=== PATIENT | male | born 1975 | race African-American/Black ===

== ENCOUNTER 2023-03-31 17:13 | Emergency (ER) | payer OTHER ==
[~2023-03-31 17:13] MED LIST: Iopamidol-370 76% 500 ML MDV (1 ML CHARGE) ONE
[2023-03-31] MEDS ORDERED: Ketorolac Tromethamine 30 MG/ML VIAL ONE (17:56)
[2023-03-31] MEDS ORDERED: Albuterol 2.5 MG/0.5 ML NEB ONE (17:56)
[2023-03-31] MEDS ORDERED: methylPREDNISolone Sod Succ/PF 125 MG/2 ML VIAL ONE ×2 (17:56→17:58)
[2023-03-31] MEDS ORDERED: Ipratropium Bromide 2.5 ml Neb ONE (17:57)
[2023-03-31 18:20] LABS: #Basophils 0.1 thou/uL (0.0-0.2); #Eosinphils 0.4 thou/uL (0.0-0.7); #Monocytes 0.3 thou/uL (0.11-0.59); %Basophils 0.5 % (0.0-1.0); %Eosinophils 3.7 % (0.0-10.0); %Lymphocytes 18.6 % (21.0-51.0); %Monocytes 3.4 % (0.0-10.0); %Neutrophils 72.8 % (42.0-75.0); Mean Corpuscular HGB CONC 34.2 g/dL (32.0-36.0); Mean Corpuscular Hemoglobin 32.3 pg (27.0-31.0); Mean Corpuscular Volume 94.5 fl (78.0-98.0); Mean Platelet Volume 9.8 fL (7.4-10.4); Platelet Count 211 10x3/uL (130-400); RBC Distribution Width 12.6 % (11.5-14.5); Red Blood Cell (RBC) Count 4.02 mill/uL (4.70-6.10); White Blood Cell (WBC) Count 9.6 10x3/uL (4.8-10.8)
[2023-03-31 18:46] LABS: ALT (SGPT) 15 U/L (8-55); AST (SGOT) 13 U/L (5-34); Albumin 3.9 g/dL (3.5-5.0); Alkaline Phosphatase 103 U/L (40-110); Anion Gap 13 mmol/L (10-20); BUN (Urea Nitrogen) 13 mg/dL (8.9-20.6); Bilirubin, Total 0.5 mg/dL (0.2-1.2); Calc. Creatinine Clearance 0 mL/min (70-130); Calcium 9.1 mg/dL (7.8-10.44); Carbon Dioxide 23 mmol/L (22-29); Estimated GFR 90; Globulin 2.7 g/dL (2.4-3.5); Glucose 132 mg/dL (70-105); Potassium 3.6 mmol/L (3.5-5.1); Protein, Total 6.6 g/dL (6.0-8.3)
[2023-03-31 19:15] LABS: Chloride 108 mmol/L (98-107); Sodium 140 mmol/L (136-145)
== END 2023-03-31 23:20 | disposition home or self-care (01) ==
LOC: ERS 17:13
DX: J18.9 Pneumonia, unspecified organism (principal); R07.9 Chest pain, unspecified; I25.10 Atherosclerotic heart disease of native coronary artery without angina pectoris; I10 Essential (primary) hypertension; E11.9 Type 2 diabetes mellitus without complications; F17.210 Nicotine dependence, cigarettes, uncomplicated
CPT/HCPCS: 71045; 71275; 80053; 84484; 85025; 93005; 94640; 96374; 96375; J1885; J2930; J7611; Q9967

== ENCOUNTER 2023-05-08 13:56 | Inpatient (IN) | payer OTHER ==
[2023-05-08 14:22] LABS: #Basophils 0.1 thou/uL (0.0-0.2); #Eosinphils 0.2 thou/uL (0.0-0.7); #Monocytes 0.4 thou/uL (0.11-0.59); #Neutrophils 3.7 thou/uL (1.40-6.50); %Basophils 0.9 % (0.0-1.0); %Eosinophils 3.6 % (0.0-10.0); %Lymphocytes 34.8 % (21.0-51.0); %Monocytes 5.2 % (0.0-10.0); %Neutrophils 55.2 % (42.0-75.0); Hemoglobin 14.8 g/dL (14.0-18.0); Mean Corpuscular HGB CONC 35.2 g/dL (32.0-36.0); Mean Corpuscular Volume 90.9 fl (78.0-98.0); Mean Platelet Volume 10.5 fL (7.4-10.4); Platelet Count 235 10x3/uL (130-400); Red Blood Cell (RBC) Count 4.63 mill/uL (4.70-6.10); White Blood Cell (WBC) Count 6.7 10x3/uL (4.8-10.8)
[2023-05-08 14:47] LABS: ALT (SGPT) 18 U/L (8-55); AST (SGOT) 21 U/L (5-34); Albumin 4.2 g/dL (3.5-5.0); Alkaline Phosphatase 207 U/L (40-110); Anion Gap 17 mmol/L (10-20); BUN (Urea Nitrogen) 18 mg/dL (8.9-20.6); Bilirubin, Total 0.5 mg/dL (0.2-1.2); Calc. Creatinine Clearance 0 mL/min (70-130); Calcium 9.5 mg/dL (7.8-10.44); Carbon Dioxide 18 mmol/L (22-29); Chloride 97 mmol/L (98-107); Estimated GFR 55; Globulin 3.5 g/dL (2.4-3.5); Glucose 632 mg/dL (70-105); Lipase 124 U/L (8-78); Potassium 4.4 mmol/L (3.5-5.1); Protein, Total 7.7 g/dL (6.0-8.3); Sodium 128 mmol/L (136-145)
[2023-05-08] MEDS ORDERED: Morphine 4 MG/ML VIAL ONE ×2 (15:45→18:43)
[2023-05-08] MEDS ORDERED: Ondansetron PF 4 MG/2 ML Vial ONE (15:45)
[2023-05-08 18:36] LABS: Bacteria/HPF None Seen HPF (None Seen); Bilirubin Negative (Negative); Blood, Urine Negative (Negative); CAUTI Indications for Culture Alt mental st,lethar; Clarity Clear (Clear); Glucose, Urine (Dipstick) Greater than 1000 mg/dL (Negative); Ketone, Urine 10 mg/dL (Negative); Leukocyte Negative Leu/uL (Negative); Nitrite Negative (Negative); Protein, Urine (Dipstick) Negative (Neg-Trace); RBC/HPF None Seen HPF (0-3); Specific Gravity, Urine 1.029 (1.002-1.036); Squamous Epithelial None Seen HPF (0-3); Urobilinogen Normal mg/dL (Less than 2); WBC/HPF None Seen HPF (0-3); pH, Urine 5.5 (5.0-9.0)
[2023-05-08 18:38] LABS: Urine Culture Reflex No No
[2023-05-08] MEDS ORDERED: Aspirin Chewable 81 MG TAB ONE (19:57)
[2023-05-08] MEDS ORDERED: Acetaminophen 650 MG Suppository PR PRN (20:08)
[2023-05-08] MEDS ORDERED: Ondansetron ODT 4 MG TAB PO PRN (20:08)
[2023-05-08] MEDS ORDERED: Acetaminophen 325 MG TAB PO PRN (20:08)
[2023-05-08] MEDS ORDERED: Ondansetron PF 4 MG/2 ML Vial IVP PRN (20:08)
[2023-05-08] MEDS ORDERED: Glucagon 1 MG/ML KIT IM PRN (20:08)
[2023-05-08] MEDS ORDERED: Dextrose 5% in Water 1,000 ML IV PRN (20:08)
[2023-05-08] MEDS ORDERED: Dextrose 50% Abboject 50 ML SYRINGE SLOW IVP PRN (20:08)
[2023-05-08] MEDS ORDERED: Furosemide 40 MG/4 ML VIAL SLOW IVP SCH (21:00)
[2023-05-08] MEDS: HumaLOG 300 UNITS/3 ML VIAL SC PRN ×2 (21:23→23:08)
[2023-05-08 21:35] LABS: Anion Gap 16 mmol/L (10-20); BUN (Urea Nitrogen) 14 mg/dL (8.9-20.6); Calc. Creatinine Clearance 57 mL/min (70-130); Calcium 9.7 mg/dL (7.8-10.44); Carbon Dioxide 23 mmol/L (22-29); Chloride 96 mmol/L (98-107); Estimated GFR 58; Potassium 4.4 mmol/L (3.5-5.1); Sodium 131 mmol/L (136-145)
[2023-05-08 21:38] LABS: Glucose 538 mg/dL (70-105)
[2023-05-08 21:59] LABS: Troponin I Less than 0.010 ng/mL (< 0.028)
[2023-05-08] MEDS: Sodium Chloride 0.9% 1,000 ML IV SCH (23:30)
[2023-05-09] MEDS: HumaLOG 300 UNITS/3 ML VIAL SC PRN ×4 (01:25→17:30)
[2023-05-09 04:05] LABS: Mean Corpuscular HGB CONC 35.3 g/dL (32.0-36.0); Mean Corpuscular Volume 90.6 fl (78.0-98.0); Mean Platelet Volume 10.4 fL (7.4-10.4); Platelet Count 216 10x3/uL (130-400); RBC Distribution Width 12.1 % (11.5-14.5); Red Blood Cell (RBC) Count 4.06 mill/uL (4.70-6.10)
[2023-05-09 04:16] LABS: Hemoglobin A1c Greater than 14.0 % (4.0-6.0)
[2023-05-09 04:24] LABS: Anion Gap 10 mmol/L (10-20); BUN (Urea Nitrogen) 12 mg/dL (8.9-20.6); Calc. Creatinine Clearance 84 mL/min (70-130); Calcium 8.7 mg/dL (7.8-10.44); Carbon Dioxide 21 mmol/L (22-29); Chloride 104 mmol/L (98-107); Estimated GFR 93; Glucose 232 mg/dL (70-105); Potassium 3.3 mmol/L (3.5-5.1); Sodium 132 mmol/L (136-145)
[2023-05-09 04:52] LABS: Delete Auto Diff?? YES; Manual Diff?? YES
[2023-05-09 06:40] LABS: Band 5 % (5-11); CellaVision Operator ID LAB.JMM; Eosinophils 8 % (0-10); Lymphocytes 46 % (21-51); Monocytes 3 % (0-10); Neutrophil 35 % (42-75); Platelet Adequacy Comment Platelets Normal; RBC Morphology Within Normal Limits; Total Cell Count 100
[2023-05-09] MEDS: Sodium Chloride 0.9% 1,000 ML IV SCH (09:14)
[2023-05-09] MEDS ORDERED: Potassium Chloride 20 MEQ TAB PO SCH (10:00)
[2023-05-09] MEDS ORDERED: traMADol HCl 50 MG TAB PO PRN (10:50)
[2023-05-09] MEDS ORDERED: Furosemide 20 MG/2 ML VIAL SLOW IVP SCH ×2 (11:00→14:00)
[2023-05-09] MEDS ORDERED: Electrolyte Replacement Protocol 1 EACH FS SCH (12:00)
[2023-05-09 12:47] LABS: Magnesium 1.9 mg/dL (1.6-2.6)
[2023-05-09 13:18] VITALS: BMI 21.2
[2023-05-09] MEDS ORDERED: Furosemide 40 MG/4 ML VIAL SLOW IVP SCH (14:00)
[2023-05-09] MEDS ORDERED: Magnesium 2 GM/50 ML(in water) 2 GM in Premix Bag 1 BAG IVPB SCH (14:00)
[2023-05-09 18:07] VITALS: BP 95/65; TEMP 97.9
[2023-05-10] MEDS ORDERED: Atorvastatin Calcium 40 MG TAB PO SCH (07:30)
[2023-05-10] MEDS ORDERED: Clopidogrel Bisulfate 75 MG TAB PO SCH (09:00)
[2023-05-10] MEDS ORDERED: Aspirin 81 mg Enteric Coated Tablet PO SCH (09:00)
== END 2023-05-09 18:52 | disposition home or self-care (01) | DRG 291 ==
LOC: ERS 13:56 → 2NO 18:38
PROVIDERS: ADMIT Family Medicine; ATTEND Internal Medicine
DX: I11.0 Hypertensive heart disease with heart failure (principal); I50.43 Acute on chronic combined systolic (congestive) and diastolic (congestive) heart failure; E87.1 Hypo-osmolality and hyponatremia; N17.9 Acute kidney failure, unspecified; E11.65 Type 2 diabetes mellitus with hyperglycemia; I25.10 Atherosclerotic heart disease of native coronary artery without angina pectoris; F17.210 Nicotine dependence, cigarettes, uncomplicated; F31.9 Bipolar disorder, unspecified; F43.10 Post-traumatic stress disorder, unspecified; E87.6 Hypokalemia; R39.198 Other difficulties with micturition; Z87.01 Personal history of pneumonia (recurrent); Z91.013 Allergy to seafood; Z79.82 Long term (current) use of aspirin; Z95.5 Presence of coronary angioplasty implant and graft; Z79.02 Long term (current) use of antithrombotics/antiplatelets; Z79.899 Other long term (current) drug therapy; Z82.49 Family history of ischemic heart disease and other diseases of the circulatory system; I42.0 Dilated cardiomyopathy
CPT/HCPCS: 36415; 36416; 71045; 71275; 76770; 80048; 80053; 81001; 83036; 83615; 83690; 83735; 83880; 84484; 85025; 93005; 93306; 96361; 96374; 96375; 96376; 97139; J1650; J1815; J1940; J2270; J2405; J3475; J7050; Q9967

== ENCOUNTER 2024-08-13 00:40 | Inpatient (IN) | payer OTHER ==
[2024-08-13 01:56] LABS: #Basophils 0.07 10x3/uL (0.0-0.2); %Basophils 0.8 % (0.0-1.0); %Eosinophils 1.5 % (0.0-10.0); %Lymphocytes 27.9 % (21.0-51.0); %Monocytes 2.6 % (0.0-10.0); Hematocrit 41.3 % (42.0-52.0); Hemoglobin 13.9 g/dL (14.0-18.0); Mean Corpuscular HGB CONC 33.7 g/dL (32.0-36.0); Mean Corpuscular Hemoglobin 33.2 pg (27.0-31.0); Mean Corpuscular Volume 98.6 fL (78.0-98.0); Platelet Count 271 10x3/uL (130-400); RBC Distribution Width 13.2 % (11.5-14.5); Red Blood Cell (RBC) Count 4.19 mill/uL (4.70-6.10)
[2024-08-13] MEDS ORDERED: Ondansetron PF 4 MG/2 ML Vial ONE (02:09)
[2024-08-13] MEDS ORDERED: Nitroglycerin 2% Ointment 1 INCH/1 GM Packet ONE (02:09)
[2024-08-13 02:16] LABS: ALT (SGPT) 34 U/L (8-55); AST (SGOT) 29 U/L (5-34); Albumin 3.6 g/dL (3.5-5.0); Alkaline Phosphatase 143 U/L (40-110); Anion Gap 13 mmol/L (10-20); BUN (Urea Nitrogen) 15 mg/dL (8.9-20.6); Bilirubin, Total 1.2 mg/dL (0.2-1.2); Calc. Creatinine Clearance 0 mL/min (70-130); Calcium 8.9 mg/dL (7.8-10.44); Carbon Dioxide 15 mmol/L (22-29); Chloride 112 mmol/L (98-107); Estimated GFR 104; Glucose 200 mg/dL (70-105); Potassium 4.2 mmol/L (3.5-5.1); Protein, Total 6.6 g/dL (6.0-8.3); Sodium 136 mmol/L (136-145)
[2024-08-13 02:20] LABS: Troponin I 0.023 ng/mL (< 0.028)
[2024-08-13] MEDS ORDERED: fentaNYL 50 mcg/mL 1 mL Vial ONE (02:54)
[2024-08-13] MEDS ORDERED: Furosemide 40 MG (4 mL) VIAL ONE (02:54)
[2024-08-13] MEDS ORDERED: Promethazine HCl 25 MG/ML VIAL ONE (02:56)
[2024-08-13] MEDS ORDERED: Ondansetron ODT 4 MG TAB PO PRN (03:30)
[2024-08-13] MEDS ORDERED: Ondansetron PF 4 MG/2 ML Vial IVP PRN (03:30)
[2024-08-13] MEDS ORDERED: Acetaminophen 325 MG TAB PO PRN (03:30)
[2024-08-13] MEDS ORDERED: Insulin Lispro 100 UNIT/ML 10 ML VIAL SC PRN ×2 (03:46)
[2024-08-13] MEDS ORDERED: Glucagon 1 MG/ML KIT IM PRN (03:46)
[2024-08-13] MEDS ORDERED: Dextrose 5% in Water 1,000 ML IV PRN (03:46)
[2024-08-13] MEDS ORDERED: Dextrose 50% Abboject 50 ML SYRINGE SLOW IVP PRN (03:46)
[2024-08-13 04:22] VITALS: BMI 22.1
[2024-08-13 04:55] LABS: Troponin I 0.028 ng/mL (< 0.028)
[2024-08-13] MEDS ORDERED: Enoxaparin 60 MG (0.6 mL) SYRINGE SC SCH (06:45)
[2024-08-13 07:59] LABS: Anion Gap 12 mmol/L (10-20); BUN (Urea Nitrogen) 15 mg/dL (8.9-20.6); Calc. Creatinine Clearance 79 mL/min (70-130); Calcium 8.7 mg/dL (7.8-10.44); Carbon Dioxide 20 mmol/L (22-29); Chloride 110 mmol/L (98-107); Estimated GFR 85; Glucose 151 mg/dL (70-105); Magnesium 1.7 mg/dL (1.6-2.6); Potassium 3.9 mmol/L (3.5-5.1); Sodium 138 mmol/L (136-145)
[2024-08-13 08:04] LABS: Troponin I 0.022 ng/mL (< 0.028)
[2024-08-13] MEDS ORDERED: Aspirin 81 mg Enteric Coated Tablet PO SCH (09:00)
[2024-08-13] MEDS ORDERED: Enoxaparin 40 MG (0.4 mL) SYRINGE SC SCH (09:00)
[2024-08-13] MEDS ORDERED: Enoxaparin 80 MG (0.8 mL) SYRINGE SC SCH (09:00)
[2024-08-13] MEDS ORDERED: Aspirin 81 mg Enteric Coated Tablet ONE (10:59)
[2024-08-13 12:51] VITALS: BP 116/86; TEMP 97.9
[2024-08-13] MEDS ORDERED: Furosemide 40 MG (4 mL) VIAL SLOW IVP SCH (14:00)
[2024-08-14] MEDS ORDERED: Atorvastatin Calcium 40 MG TAB PO SCH (07:30)
== END 2024-08-13 12:00 | disposition left against medical advice (07) | DRG 291 ==
LOC: ERS 00:40 → ERHOLD 03:00
PROVIDERS: ADMIT Student in an Organized Health Care Education/Training Program; ATTEND Family Medicine
DX: I11.0 Hypertensive heart disease with heart failure (principal); I50.23 Acute on chronic systolic (congestive) heart failure; E11.9 Type 2 diabetes mellitus without complications; I25.110 Atherosclerotic heart disease of native coronary artery with unstable angina pectoris; F17.210 Nicotine dependence, cigarettes, uncomplicated; F31.9 Bipolar disorder, unspecified; F43.10 Post-traumatic stress disorder, unspecified; Z95.5 Presence of coronary angioplasty implant and graft; Z79.4 Long term (current) use of insulin; Z91.013 Allergy to seafood; Z79.899 Other long term (current) drug therapy
CPT/HCPCS: 36415; 71045; 80053; 83036; 83735; 83880; 84484; 85025; 93005; J1940; J2405; J2550; J3010